=== PATIENT | female | born 1995 | race Caucasian/White ===

== ENCOUNTER 2022-12-02 08:36 | Outpatient (CLI) | payer BC, SELFPAY ==
[2022-12-02 09:23] LABS: Hemoglobin A1C 5.8 % (<5.7)
[2022-12-02 09:49] LABS: Free T4 Free Thyroxine 0.92 ng/dL (0.76-1.46); Thyroid Stimulating Hormone 0.76 uIU/mL (0.36-3.74)
[2022-12-02 09:57] LABS: Beta HCG Quantitative < 1.00 mIU/mL (0-6)
[2022-12-05 11:41] LABS: DHEA-Sulfate 276 mcg/dL (18-391)
[2022-12-05 15:47] LABS: Prolactin 7.4 ng/mL (***)
[2022-12-05 17:48] LABS: Testosterone Total 82 ng/dL (2-45)
[2022-12-08 05:51] LABS: Insulin Level Total 27.9 uIU/mL (<=18.4)
== END 2022-12-02 08:37 | disposition home or self-care (01) ==
LOC: CHSLAB 08:44
PROVIDERS: Visit Provider Nurse Practitioner
DX: N92.6 Irregular menstruation, unspecified (principal)
CPT/HCPCS: 36415; 82627; 83036; 83498; 83525; 84146; 84403; 84439; 84443; 84702

== ENCOUNTER 2023-02-07 09:40 | Outpatient (CLI) | payer BC, SELFPAY ==
[2023-02-12 06:21] LABS: Progesterone 0.4 ng/mL (***)
== END 2023-02-07 09:41 | disposition home or self-care (01) ==
LOC: CHSLAB 09:44
PROVIDERS: Visit Provider Advanced Practice Midwife
DX: N97.0 Female infertility associated with anovulation (principal)
CPT/HCPCS: 36415; 84144

== ENCOUNTER 2023-04-01 09:03 | Outpatient (CLI) | payer BC, SELFPAY ==
[2023-04-06 07:30] LABS: Progesterone 0.3 ng/mL (***)
== END 2023-04-01 09:04 | disposition home or self-care (01) ==
PROVIDERS: Visit Provider Obstetrics & Gynecology Gynecology
DX: Z31.49 Encounter for other procreative investigation and testing (principal); N97.9 Female infertility, unspecified
CPT/HCPCS: 36415; 84144

== ENCOUNTER 2023-06-05 09:28 | Outpatient (CLI) | payer BC, SELFPAY ==
[2023-06-06 06:18] LABS: Progesterone 15.5 ng/mL
== END 2023-06-05 09:29 | disposition home or self-care (01) ==
LOC: CHSLAB 09:32
PROVIDERS: Visit Provider Obstetrics & Gynecology Gynecology
DX: N97.9 Female infertility, unspecified (principal)
CPT/HCPCS: 36415; 84144

== ENCOUNTER 2023-06-14 09:47 | Outpatient (CLI) | payer BC, SELFPAY | END 2023-06-14 09:48 | disposition home or self-care (01) | LOC: CHSLAB 09:50 | PROVIDERS: Visit Provider Advanced Practice Midwife | DX: O09.01 Supervision of pregnancy with history of infertility, first trimester (principal) | CPT/HCPCS: 36415; 84702 ==

== ENCOUNTER 2023-06-16 09:17 | Outpatient (CLI) | payer BC, SELFPAY | END 2023-06-16 09:18 | disposition home or self-care (01) | LOC: CHSLAB 09:20 | PROVIDERS: PCP Advanced Practice Midwife; Visit Provider Obstetrics & Gynecology Gynecology | DX: O09.01 Supervision of pregnancy with history of infertility, first trimester (principal) | CPT/HCPCS: 36415; 84702 ==

== ENCOUNTER 2023-06-22 07:48 | Outpatient (CLI) | payer BC, SELFPAY ==
--- NOTE | ~2023-06-22 | US_ITS ---
EXAMINATION: US OB <=14 wk fetus w TV DATE: 06/22/2023 08:19 INDICATION: with history of infertility TECHNIQUE: Real-time transabdominal and transvaginal obstetric ultrasound. FINDINGS: No prior studies for comparison. The uterus measures 7.4 x 4.1 x 3.4Centimeters. There is an intrauterine gestational sac with measure ments corresponding to 5 week 5 day gestation. No pole or yolk sac are identified. Fluid is pre sent in the cervix. There is a right corpus luteal cyst measuring 2.8 cm. Left ovary is unremarkable. IMPRESSION: 1. Intrauterine gestational sac corresponding to 5 week 5 day gestation (KAILYN 02/17/2024). No evidence for pole or yolk sac, likely due to early gestational age. Recommend follow-up with serial drew ntitative beta-hCG levels and ultrasound as clinically warranted. Reviewed, dictated and finalized at location B. IMPRESSION: 1. Intrauterine gestational sac corresponding to 5 week 5 day gestation (KAILYN ). No evidence for pole or yolk sac, likely due to early gestatio nal age. Recommend follow-up with serial quantitative beta-hCG levels and ultra sound as clinically warranted.
== END 2023-06-22 07:49 ==
LOC: GOSHIMG 07:49
PROVIDERS: PCP Obstetrics & Gynecology Gynecology; Visit Provider Obstetrics & Gynecology Gynecology
DX: O09.01 Supervision of pregnancy with history of infertility, first trimester (principal); Z3A.01 Less than 8 weeks gestation of pregnancy
CPT/HCPCS: 76801; 76817

== ENCOUNTER 2023-06-29 08:02 | Outpatient (CLI) | payer BC, SELFPAY ==
--- NOTE | ~2023-06-29 | US_ITS ---
EXAMINATION: US OB <=14 wk fetus w TV DATE: 06/29/2023 08:26 INDICATION: Supervision of with history of infertility. TECHNIQUE: Real-time transabdominal and transvaginal pelvic ultrasound was performed. COMPARISON: Ultrasound 06/22/2023 FINDINGS: TRANSABDOMINAL ULTRASOUND: The uterus measures 7.8 x 4.9 x 4.2 cm. TRANSVAGINAL ULTRASOUND: There is an intrauterine gestational sac. A yolk sac is identified. The fet al crown rump length measures 5 mm, which correlates with an estimated gestational age of 6 weeks and 6 day(s) (+/-) 4 day(s). heart motion is identified measuring 140 beats per minute (bpm) by M- mode Doppler. The right ovary measures 4.6 x 3.3 x 3.1 cm. The left ovary measures 2.5 x 2.4 x 1.5 cm . There is no free fluid in the pelvis. IMPRESSION: 1. Single living intrauterine gestation with estimated date of delivery of 02/20/2024. Reviewed, dictated and finalized at location A. IMPRESSION: 1. Single living intrauterine gestation with estimated date of delivery of .
== END 2023-06-29 08:03 ==
LOC: GOSHIMG 08:03
PROVIDERS: PCP Obstetrics & Gynecology Gynecology; Visit Provider Obstetrics & Gynecology Gynecology
DX: O09.01 Supervision of pregnancy with history of infertility, first trimester (principal); Z3A.00 Weeks of gestation of pregnancy not specified
CPT/HCPCS: 76801; 76817

== ENCOUNTER 2023-08-02 12:12 | Outpatient (CLI) | payer BC, SELFPAY ==
[2023-08-02 12:55] LABS: Basophils Absolute Auto 0.03 K/mm3 (0.00-0.10); Basophils Percent Auto 0.3 % (0.0-1.0); Eosinophils Percent Auto 1.1 % (1.0-6.0); Hematocrit 39.2 % (35.0-49.0); Immature Granulocyte Absolute 0.04 K/mm3 (0.00-0.00); Immature Granulocyte Percent A 0.4 % (0.0-0.0); Lymphocytes Absolute Auto 2.74 K/mm3 (1.10-4.50); Lymphocytes Percent Auto 29.4 % (18.0-42.0); Mean Corpuscular HGB Conc 33.2 g/dL (32-36); Mean Corpuscular Hemoglobin 27.5 pg (27.0-31.0); Mean Corpuscular Volume 83.1 fL (78.0-102.0); Monocytes Absolute Auto 0.37 K/mm3 (0.10-0.90); Neutrophils Absolute Auto 6.03 K/mm3 (1.70-7.20); Neutrophils Percent Auto 64.8 % (50.0-70.0); Platelet Count Result 274 K/mm3 (150-420); Red Blood Count 4.72 M/mm3 (4.20-5.40); Red Cell Distribution Width 12.4 % (11.6-14.4); White Blood Count 9.3 K/mm3 (4.8-10.8)
[2023-08-02 13:07] LABS: Hemoglobin A1C 5.4 % (<5.7)
[2023-08-02 13:24] LABS: Ferritin 207 ng/mL (8-252)
[2023-08-02 13:29] LABS: Thyroid Stimulating Hormone Reflex 0.51 u/IU/mL (0.36-3.74)
[2023-08-02 13:42] LABS: HIV 1 P24 AG Negative (Negative); HIV 1/2 AB Negative (Negative)
[2023-08-03 11:12] LABS: Free T4 Free Thyroxine 0.88 ng/dL (0.76-1.46)
[2023-08-03 17:43] LABS: Vitamin D 25 Hydroxy 28 ng/mL (30-100)
[2023-08-04 10:28] LABS: RPR Screen NON-REACTIVE (NON-REACTIVE)
[2023-08-04 12:49] LABS: Rubella IgG Antibody <0.90 Index
[2023-08-04 16:03] LABS: Hepatitis B Surface Antigen NON-REACTIVE (NON-REACTIVE); Hepatitis C Virus Antibody NON-REACTIVE (NON-REACTIVE)
== END 2023-08-02 12:13 | disposition home or self-care (01) ==
LOC: CHSLAB 12:15
PROVIDERS: PCP Obstetrics & Gynecology Gynecology; Visit Provider Advanced Practice Midwife
DX: Z36.9 Encounter for antenatal screening, unspecified (principal); Z13.29 Encounter for screening for other suspected endocrine disorder
CPT/HCPCS: 36415; 82306; 82728; 83036; 84439; 84443; 85025; 86592; 86762; 86803; 86850; 86900; 86901; 87340; 87806

== ENCOUNTER 2023-09-20 08:03 | Outpatient (CLI) | payer BC, SELFPAY ==
--- NOTE | ~2023-09-20 | US_ITS ---
EXAMINATION: US OB /maternal detail DATE: 09/20/2023 09:08 INDICATION: anatomic survey. TECHNIQUE: Real-time ultrasound of the pelvis was performed. COMPARISON: Ultrasound 06/29/2023, 06/22/2023 FINDINGS: There is a single living fetus in breech presentation. The placenta is anterior, 7.0 cm from the cer vix. The cervical length is 2.7 cm on transabdominal images, which is normal. heart rate is 143 beats per minute (bpm). The amniotic fluid volume is subjectively normal. The following biometric data were obtained: Biparietal diameter (BPD): 4.1 cm; head circumference (HC): 15.6 cm; abdominal circumference (AC): 12 .5 cm; femur length (FL): 2.7 cm. These measurements are concordant. Estimated weight is 230 g +/- 34 g, which correlates with the 50th percentile when 02/20/24 is used as estimated date of delivery. As single measurements, these parameters are each equal to the following estimated gestational ages: BPD: 18 weeks 2 days. HC: 18 weeks 4 days. AC: 18 weeks 1 days. FL: 18 weeks 2 days. estimated gestational age based solely on measurements from this exam is 18 weeks 2 days +/- 1 weeks 2 days. The cerebral ventricles and visualized portions of the spine are normal. The heart is normal. The jesi phragm, stomach, kidneys, and bladder are normal. There are two umbilical arteries to yield a 3-vesse l cord. The cord insertion is normal. The cisterna magna, cerebellum, nuchal fold, lip, and hea rt are not well visualized. IMPRESSION: 1. Single living fetus in breech presentation. 2. Estimated weight is 230 g +/- 34 g, which correlates with the 50th percentile when 02/20/24 is used as estimated date of delivery. This date was set by ultrasound on 06/29/2023. 3. Cisterna magna, cerebellum, nuchal fold, lip, and heart not well visualized. Otherwise autumn l anatomic survey. Reviewed, dictated and finalized at location A. IMPRESSION: 1. Single living fetus in breech presentation. 2. Estimated weight is 230 g +/- 34 g, which correlates with the 50th pe rcentile when 02/20/24 is used as estimated date of delivery. This date was set by ultrasound on 06/29/2023. 3. Cisterna magna, cerebellum, nuchal fold, lip, and heart not well visua lized. Otherwise normal anatomic survey.
== END 2023-09-20 08:04 ==
PROVIDERS: PCP Obstetrics & Gynecology Gynecology; Visit Provider Obstetrics & Gynecology Gynecology
DX: Z36.9 Encounter for antenatal screening, unspecified (principal)
CPT/HCPCS: 76805

== ENCOUNTER 2023-10-17 08:13 | Outpatient (CLI) | payer BC, SELFPAY ==
--- NOTE | ~2023-10-17 | US_ITS ---
EXAMINATION: US OB follow up DATE: 10/17/2023 08:44 INDICATION: Incomplete anatomic survey. TECHNIQUE: Real-time ultrasound of the pelvis was performed. COMPARISON: Ultrasound 09/20/2023 FINDINGS: There is a single living fetus in vertex presentation. The placenta is anterior. heart rate is 146 beats per minute (bpm). The cerebral ventricles, cerebellum, cisterna magna, nuchal fold, and he art views are normal. The amniotic fluid volume is subjectively normal. The following biometric data were obtained: Biparietal diameter (BPD): 5.6 cm; head circumference (HC): 20.9 cm; abdominal circumference (AC): 17 .9 cm; femur length (FL): 3.9 cm. These measurements are concordant. Estimated weight is 526 g +/- 79 g, which correlates with the 79th percentile when 02/20/24 is used as estimated date of delivery. As single measurements, these parameters are each equal to the following estimated gestational ages: BPD: 23 weeks 0 days. HC: 23 weeks 0 days. AC: 22 weeks 6 days. FL: 22 weeks 3 days. estimated gestational age based solely on measurements from this exam is 22 weeks 6 days +/- 1 weeks 4 days. IMPRESSION: 1. Single living fetus in vertex presentation. 2. Estimated weight is 526 g +/- 79 g, which correlates with the 79th percentile when 02/20/24 is used as estimated date of delivery. 3. Normal head and heart. Reviewed, dictated and finalized at location A. IMPRESSION: 1. Single living fetus in vertex presentation. 2. Estimated weight is 526 g +/- 79 g, which correlates with the 79th pe rcentile when 02/20/24 is used as estimated date of delivery. 3. Normal head and heart.
== END 2023-10-17 08:14 ==
LOC: GOSHIMG 08:14
PROVIDERS: PCP Obstetrics & Gynecology Gynecology; Visit Provider Obstetrics & Gynecology Gynecology
DX: Z36.2 Encounter for other antenatal screening follow-up (principal)
CPT/HCPCS: 76816

== ENCOUNTER 2023-12-01 10:40 | Outpatient (CLI) | payer BC, SELFPAY ==
[2023-12-01 12:18] LABS: Hematocrit 34.6 % (35.0-49.0); Hemoglobin 11.4 g/dL (12.0-15.0)
[2023-12-01 12:43] LABS: Glucose 1 Hour PP 50gm Dose 183 mg/dL (70-130)
[2023-12-01 12:51] LABS: HIV 1 P24 AG Negative (Negative); HIV 1/2 AB Negative (Negative)
[2023-12-02 10:58] LABS: Vitamin D 25 Hydroxy 53 ng/mL (30-100)
[2023-12-04 12:33] LABS: RPR Screen NON-REACTIVE (NON-REACTIVE)
== END 2023-12-01 10:41 | disposition home or self-care (01) ==
LOC: CHSLAB 10:41
PROVIDERS: Visit Provider Advanced Practice Midwife
DX: E55.9 Vitamin D deficiency, unspecified (principal); Z36.9 Encounter for antenatal screening, unspecified
CPT/HCPCS: 36415; 82306; 82947; 85014; 85018; 86592; 87806

== ENCOUNTER 2023-12-08 09:24 | Outpatient (CLI) | payer BC, SELFPAY ==
[2023-12-08 09:52] LABS: Glucose Fasting 93 mg/dL (70-99)
[2023-12-08 10:54] LABS: Glucose 1 Hour 237 mg/dL (<180)
[2023-12-08 12:13] LABS: Glucose 2 Hour 204 mg/dL (<155)
[2023-12-08 12:53] LABS: Glucose 3 Hour 142 mg/dL (<140)
== END 2023-12-08 09:25 | disposition home or self-care (01) ==
LOC: CHSLAB 09:28
PROVIDERS: PCP Obstetrics & Gynecology Gynecology; Visit Provider Obstetrics & Gynecology Gynecology
DX: O99.810 Abnormal glucose complicating pregnancy (principal)
CPT/HCPCS: 36415; 82951; 82952

== ENCOUNTER 2023-12-29 07:54 | Outpatient (CLI) | payer BC, SELFPAY ==
--- NOTE | ~2023-12-29 | US_ITS ---
EXAMINATION: US OB follow up DATE: 12/29/2023 08:16 INDICATION: Size greater than dates. . TECHNIQUE: Real-time ultrasound of the pelvis was performed. COMPARISON: Ultrasound 10/17/2023, 06/22/2023 FINDINGS: There is a single living fetus in vertex presentation. The placenta is anterior. heart rate is 147 beats per minute (bpm). The amniotic fluid index is 11.9 cm, which is normal. The following biometric data were obtained: Biparietal diameter (BPD): 8.7 cm; head circumference (HC): 29.7 cm; abdominal circumference (AC): 28 .6 cm; femur length (FL): 6.4 cm. These measurements are discordant with high cephalic index. Estimated weight is 2102 g +/- 315 g, which correlates with the 59th percentile when 02/20/24 i s used as estimated date of delivery. As single measurements, these parameters are each equal to the following estimated gestational ages: BPD: 34 weeks 6 days. HC: 32 weeks 6 days. AC: 32 weeks 5 days. FL: 33 weeks 1 days. estimated gestational age based solely on measurements from this exam is 33 weeks 3 days +/- 2 weeks 2 days. IMPRESSION: 1. Single living fetus in vertex presentation. 2. Estimated weight is 2102 g +/- 315 g, which correlates with the 59th percentile when is used as estimated date of delivery. This date was set by ultrasound on 06/29/2023. 3. High cephalic index. Reviewed, dictated and finalized at location A. AR MIXER OPERATOR IMPRESSION: 1. Single living fetus in vertex presentation. 2. Estimated weight is 2102 g +/- 315 g, which correlates with the 59th percentile when 02/20/24 is used as estimated date of delivery. This date was s et by ultrasound on 06/29/2023. 3. High cephalic index.
== END 2023-12-29 07:55 | disposition home or self-care (01) ==
LOC: CHSIMG 07:55
PROVIDERS: Visit Provider Advanced Practice Midwife
DX: O36.63X0 Maternal care for excessive fetal growth, third trimester, not applicable or unspecified (principal); O24.410 Gestational diabetes mellitus in pregnancy, diet controlled
CPT/HCPCS: 76816

== ENCOUNTER 2024-01-23 15:28 | Outpatient (CLI) | payer BC, SELFPAY ==
--- NOTE | ~2024-01-23 | US_ITS ---
EXAMINATION: US OB follow up DATE: 01/23/2024 15:46 INDICATION: Assess growth during third trimester TECHNIQUE: Real-time ultrasound of the pelvis was performed. The interpreting radiologist was not pre sent for the study. COMPARISON: None. FINDINGS: There is a single living fetus in vertex presentation. The placenta is anterior. heart rate is 159 beats per minute (bpm). The amniotic fluid index is 11.9 cm, which is normal. (5th%-95%: 7.7-24 .9 cm at 36 weeks estimated gestational age). The following biometric data were obtained: BPD: 8.9 cm -> 36 weeks 0 days Head circumference: 31.5 cm -> 35 weeks 2 days Abdominal circumference: 32.1 cm -> 36 weeks 0 days Femur length: 7.0 cm -> 35 weeks 5 days These measurements are concordant. Head circumference to abdominal circumference ratio: 0.98 (normal range 0.93-1.09). Estimated weight: 2783 g (+/-) 417 g or 6 lbs. 2 oz. (+/-) 15 oz. IMPRESSION: 1. Single living fetus in vertex presentation with heart rate of 159 bpm. 2. Normal amniotic fluid index of 11.9 cm. 3. Estimated weight is 47th percentile by Hadlock criteria when 02/20/2024 is used as the estim ated date of delivery (KAILYN). Please correlate with clinical information or earlier ultrasounds for mo st accurate KAILYN. Reviewed, dictated and finalized at location A. T TEAM CLERK IMPRESSION: 1. Single living fetus in vertex presentation with heart rate of 159 bpm. 2. Normal amniotic fluid index of 11.9 cm. 3. Estimated weight is 47th percentile by Hadlock criteria when 4 is used as the estimated date of delivery (KAILYN). Please correlate with clinic al information or earlier ultrasounds for most accurate KAILYN.
== END 2024-01-23 15:29 | disposition home or self-care (01) ==
LOC: GOSHIMG 15:29
PROVIDERS: PCP Advanced Practice Midwife; Visit Provider Advanced Practice Midwife
DX: O24.410 Gestational diabetes mellitus in pregnancy, diet controlled (principal); Z3A.00 Weeks of gestation of pregnancy not specified
CPT/HCPCS: 76816

== ENCOUNTER 2024-02-06 11:56 | Outpatient (RCR) | payer BC, SELFPAY ==
[2024-02-06 13:08] VITALS: BP 112/70; PULSE 91
== END 2024-05-06 23:59 | disposition home or self-care (01) ==
LOC: ANHOBOP 11:56
PROVIDERS: PCP Advanced Practice Midwife; Visit Provider Obstetrics & Gynecology Gynecology
DX: O99.891 Other specified diseases and conditions complicating pregnancy (principal); V89.2XXA Person injured in unspecified motor-vehicle accident, traffic, initial encounter; Z3A.38 38 weeks gestation of pregnancy
CPT/HCPCS: 59025

== ENCOUNTER 2024-02-12 | Inpatient (IN) | payer BC, SELFPAY ==
[2024-02-12] VITALS (239 sets, daily range): BP systolic 81–158; BP diastolic 39–123; PULSE 64–231; RESP 16; TEMP 36.2–37.2; O2SAT 88–100; BMI 41.1
--- NOTE | 2024-02-12 00:31 | LDADM ---
This patient, Yuliet Wood, was admitted to Labor/Delivery/Recovery 105 on 02/12/24 at 00:00. Plans for labor, pain management and were discussed with patient. Patient/family oriented to hospital policies and general routines including ID bracelet, bed and alarms, visiting hours, pain management, procedures, bathroom and other care routines, personal items, smoking policy, room service/diet and guest tray routines, security routines, and visiting hours. Patient/Family are encouraged to report perceived risks to care and to ask questions if they do not understand what they are told or what they should do. See OBIX for further documentation.
[2024-02-12 01:06] LABS: Basophils Percent Auto 0.3 % (0.2-1.2); Eosinophils Absolute Auto 0.1 K/mm3 (0-0.3); Eosinophils Percent Auto 0.9 % (0-4.4); Immature Granulocyte Absolute 0.07 K/mm3 (0.00-0.031); Immature Granulocyte Percent A 0.7 % (0-0.5); Lymphocytes Absolute Auto 2.69 K/mm3 (0.9-3.2); Mean Corpuscular HGB Conc 33.3 g/dl (32-36); Mean Corpuscular Volume 81.1 fl (80-100); Mean Platelet Volume 11.3 fl (7.4-10.4); Monocytes Absolute Auto 0.6 K/mm3 (0.1-0.6); Monocytes Percent Auto 5.8 % (2.6-8.5); Neutrophils Absolute Auto 6.5 K/mm3 (1.3-6.7); Neutrophils Percent Auto 65.3 % (45.5-73.1); Platelet Count Result 227 k/mm3 (150-375); Red Blood Count 4.44 M/mm3 (4.2-5.4); Red Cell Distribution Width 13.6 % (11.5-14.5)
[2024-02-12 01:11] LABS: Glucose 92 mg/dL (65-110)
[2024-02-12 01:52] LABS: HIV 1/2 Ab P24 Ag Result Negative (Negative)
[2024-02-12 02:18] LABS: Rapid Plasma Reagin Non-Reactive (NonReactive)
[2024-02-12] MEDS: LACTATED RINGERS 1,000 ML 125 ML IV CONT ×4 (03:01→20:27)
[2024-02-12] MEDS: AMPICILLIN 2 GM/NS 100 ML 2 GM/100 ML BAG IVPB (03:03)
[2024-02-12] MEDS: OXYTOCIN 30 UNITS/NS 500 ML 30 UNITS/500 ML BAG IV CONT (03:04)
[2024-02-12] MEDS: diphenhydrAMINE HCl INJ 50 MG/ML VIAL 12.5 MG IV PUSH ×2 (03:45→18:11)
[2024-02-12 04:35] LABS: Glucose Point of Care 85 mg/dl (65-105)
[2024-02-12] MEDS: VANCOMYCIN 1,000 MG/NS 250 ML 1,000 MG/250 ML BAG 250 MG IVPB ×2 (07:29→19:18)
--- NOTE | 2024-02-12 07:52 | P.PNOB_ITS ---
Pain Control Date/time seen: 02/12/24 07:45 Pain control: tolerating well Comments: Feeling occasional tightening. Pelvic Exam Dilation (cm): 4 (4.5) Effacement (%): 80 station: -2 Amniotic membrane status: Intact Comments: head well applied to cervix. Contractions Monitor mode: External Contraction pattern: Irregular Contraction intensity: Mild Status Comments: FHTs 145 ,moderate variability, + acceleration. Assessment and Plan Pitocin rate (mU/min): 12 Assessment: induction ongoing Comments: CNM to bedside. Discussed plan of care and option for amniotomy. Discussed ris ks, benefits, and expectations of breaking water. Patient is agreeable. Amniotomy performed and there was a moderate return of clear amniotic fluid. Patient tolerated procedure well. Anticipate vaginal . Dr. Castle updated.
--- NOTE | 2024-02-12 07:52 | WPDOBADMIT ---
Obstetrics - Admit Note Admission Note: record reviewed. No pertinent additions to the history and/or any subsequent changes in the physical findings that are not consistent with the expected course of the were found. Additions to the history and/or subsequent changes in the physical findings follow. None.
[2024-02-12 09:04] LABS: Glucose Point of Care 98 mg/dl (65-105)
--- NOTE | 2024-02-12 09:43 | P.PNAN_ITS ---
Anes - Eval Pre Procedure Procedure: labor epidural Date/Time: 02/12/24 09:43 Surgeon: gretta Preop Diagnosis: pain during labor Pre Op Diagnosis: Induction of labor Patient Data Age: 28 Gender: F Height: 1.57 m Weight: 102 kg Last Vital Signs Temp 36.2 C L 02/12/24 09:32 Pulse 90 02/12/24 09:30 BP 121/68 02/12/24 09:30 O2 Del Method Room Air 02/12/24 00:29 Allergies Allergy/AdvReac Type Severity Reaction Status Date / Time ampicillin Allergy Mild Itching Verified 02/12/24 05:10 amoxicillin Allergy Rash Verified 02/12/24 05:10 Home Medications ?Medication ?Instructions ?Recorded ?Confirmed ?Type aspirin 81 mg tablet 81 mg PO DAILY 01/26/24 01/26/24 History ergocalciferol (vitamin D2) 25,000 See Rx Instructions .Route .COMPLEX 01/26/24 01/26/24 History unit capsule famotidine 20 mg tablet (Pepcid) 20 mg PO DAILY 01/26/24 01/26/24 History vits no.126-ferrous fum 1 tablet PO DAILY 01/26/24 01/26/24 History 28 mg iron-folic acid 800 mcg tablet (Classic ) Laboratory Tests 02/12/24 02/12/24 02/12/24 00:52 04:32 09:00 WBC 10.0 K/mm3 (4.5-10.0) RBC 4.44 M/mm3 (4.2-5.4) Hgb 12.0 g/dL (12.0-15.0) Hct 36.0 L % (37.0-47.0) MCV 81.1 fl (80-100) MCH 27.0 pg (26-34) MCHC 33.3 g/dl (32-36) RDW 13.6 % (11.5-14.5) Plt Count 227 k/mm3 (150-375) MPV 11.3 H fl (7.4-10.4) Immature Gran % (Auto) 0.7 H % (0-0.5) Neut % (Auto) 65.3 % (45.5-73.1) Lymph % (Auto) 27.0 % (18.3-44.2) Glascock % (Auto) 5.8 % (2.6-8.5) Eos % (Auto) 0.9 % (0-4.4) Baso % (Auto) 0.3 % (0.2-1.2) Lymph # (Auto) 2.69 K/mm3 (0.9-3.2) Glascock # (Auto) 0.6 K/mm3 (0.1-0.6) Eos # (Auto) 0.1 K/mm3 (0-0.3) Baso # (Auto) 0.0 K/mm3 (0.0-0.1) Abs Immat Gran (auto) 0.07 H K/mm3 (0.00-0.031) Absolute Neuts (auto) 6.5 K/mm3 (1.3-6.7) Absolute Nucleated RBC 0.000 K/mm3 (0.0-0.012) Nucleated RBC % 0.0 % (0.0-0.2) Glucose 92 mg/dL (65-110) POC Capillary Glucose 85 mg/dl 98 mg/dl (65-105) (65-105) RPR Non-reactive (NonReactive) HIV 1&2 Ab/P24 Ag 4thGn Negative (Negative) Blood Type A Positive Antibody Screen Negative Patient hx anesthesia problems: none Family hx anesthesia problems: none Results Review: All pre-operative results and documents have been reviewed as part of the pre- operative evaluation. [facility] Past Medical History Medical History (Updated 02/12/24 @ 09:44 by Kia Anaya CRNA) Obesity Family History Family History (Updated 01/26/24 @ 12:17 by Darline Salgado RN) Other No pertinent family history Social History Social History Smoking status: Never smoker Second hand tobacco smoke exposure: No Substance use: never Do You Feel Safe in your Home?: Yes Lack of Transportation: No Lack of Food: Never True Current Housing: I Have Housing Concerned About Future Housing: No Difficulty Paying Gas/Electric Bills: No Difficulty Paying for Meds: No Currently Unemployed: No Education: Bachelor's Degree Difficulty w/ Childcare or Family Care: No Spiritual care concerns: No Exam Day of Procedure 02/12/24 09:43
[2024-02-12 11:59] LABS: Glucose Point of Care 83 mg/dl (65-105)
[2024-02-12 14:06] LABS: Glucose Point of Care 87 mg/dl (65-105)
[2024-02-12 16:01] LABS: Glucose Point of Care 72 mg/dl (65-105)
--- NOTE | 2024-02-12 17:29 | PM.OBPNLAB ---
Pain Control Date/time seen: 02/12/24 17:25 Pain control: tolerating well and epidural Comments: Feeling occasional pressure. Pelvic Exam Dilation (cm): 8 (4.5) Effacement (%): 90 station: 0 Amniotic membrane status: Ruptured Contractions Monitor mode: Internal Contraction frequency: 2 (2-4) Contraction duration: 60 (60-80) Contraction pattern: Regular Status Comments: FHTs 145 baseline, moderate variability, +scalp stim, recent late decels which resolved with position change. Assessment and Plan Pitocin rate (mU/min): 18 Assessment: active labor Plan: continuous present management Comments: Recommend frequent maternal position changes to facilitate descent into the pelvis. Reviewed tracing. No evidence of infection. Antibiotics continued for GBS+ status. Blood sugars stable. Dr. Castle updated.
--- NOTE | 2024-02-12 17:34 | P.HP_ITS ---
H&P: HPI History of Present Illness Date/Time: 02/12/24 17:34 Chief Complaint: Induction of labor Narrative: 28 y.o at 39 weeks 3 days. GDMA1 with stable blood sugars. Received pitocin for IOL and amniotomy was performed. Epidural placed for analgesia. Review of Systems Review of Systems: All systems reviewed & are unremarkable except as noted in HPI and below PMFSH Past Medical History Medical History (Updated 02/12/24 @ 17:39 by Twila Mccarty CNM) Obesity Family History Family History (Updated 01/26/24 @ 12:17 by Darline Salgado RN) Other No pertinent family history Social History Social History Smoking status: Never smoker Second hand tobacco smoke exposure: No Substance use: never Do You Feel Safe in your Home?: Yes Lack of Transportation: No Lack of Food: Never True Current Housing: I Have Housing Concerned About Future Housing: No Difficulty Paying Gas/Electric Bills: No Difficulty Paying for Meds: No Currently Unemployed: No Education: Bachelor's Degree Difficulty w/ Childcare or Family Care: No Spiritual care concerns: No Meds Home Medications and Allergies Home Medications ?Medication ?Instructions ?Recorded ?Confirmed ?Type aspirin 81 mg tablet 81 mg PO DAILY 01/26/24 01/26/24 History ergocalciferol (vitamin D2) 25,000 See Rx Instructions .Route .COMPLEX 01/26/24 01/26/24 History unit capsule famotidine 20 mg tablet (Pepcid) 20 mg PO DAILY 01/26/24 01/26/24 History vits no.126-ferrous fum 1 tablet PO DAILY 01/26/24 01/26/24 History 28 mg iron-folic acid 800 mcg tablet (Classic ) Allergies Allergy/AdvReac Type Severity Reaction Status Date / Time ampicillin Allergy Mild Itching Verified 02/12/24 05:10 amoxicillin Allergy Rash Verified 02/12/24 05:10 Vital Signs Vital Signs - 24 hr 02/12/24 00:18 02/12/24 00:29 02/12/24 00:30 Temperature 98 F Pulse Rate 88 89 Blood Pressure 138/72 125/72 Pulse Oximetry Oxygen Delivery Room Air 02/12/24 00:45 02/12/24 01:00 02/12/24 01:15 Temperature Pulse Rate 86 92 90 Blood Pressure 111/87 122/70 120/68 Pulse Oximetry Oxygen Delivery 02/12/24 03:15 02/12/24 04:00 02/12/24 04:15 Temperature Pulse Rate 86 79 79 Blood Pressure 133/66 146/82 H 131/73 Pulse Oximetry Oxygen Delivery 02/12/24 04:30 02/12/24 04:45 02/12/24 05:00 Temperature Pulse Rate 86 83 78 Blood Pressure 132/73 129/75 140/74 Pulse Oximetry Oxygen Delivery 02/12/24 05:15 02/12/24 05:30 02/12/24 06:00 Temperature Pulse Rate 78 86 83 Blood Pressure 138/76 147/80 H 107/61 Pulse Oximetry Oxygen Delivery 02/12/24 06:14 02/12/24 06:30 02/12/24 06:45 Temperature Pulse Rate 91 87 81 Blood Pressure 123/81 135/74 128/70 Pulse Oximetry Oxygen Delivery 02/12/24 07:00 02/12/24 07:15 02/12/24 07:25 Temperature 97.2 F L Pulse Rate 79 85 Blood Pressure 116/69 122/70 Pulse Oximetry Oxygen Delivery 02/12/24 07:30 02/12/24 08:00 02/12/24 08:30 Temperature Pulse Rate 90 85 79 Blood Pressure 120/82 119/75 120/66 Pulse Oximetry Oxygen Delivery 02/12/24 09:30 02/12/24 09:32 02/12/24 10:05 Temperature 97.2 F L 98.4 F Pulse Rate 90 Blood Pressure 121/68 Pulse Oximetry Oxygen Delivery 02/12/24 10:26 02/12/24 10:28 02/12/24 10:31 Temperature Pulse Rate 92 Blood Pressure 141/73 H Pulse Oximetry 99 99 Oxygen Delivery 02/12/24 10:33 02/12/24 10:34 02/12/24 10:36 Temperature Pulse Rate 80 90 89 Blood Pressure 142/76 H 142/62 H 128/60 Pulse Oximetry 99 Oxygen Delivery 02/12/24 10:39 02/12/24 10:41 02/12/24 10:42 Temperature Pulse Rate 88 89 Blood Pressure 127/64 121/60 Pulse Oximetry 98 Oxygen Delivery 02/12/24 10:45 02/12/24 10:46 02/12/24 10:48 Temperature Pulse Rate 87 75 Blood Pressure 121/54 L 117/54 L Pulse Oximetry 98 Oxygen Delivery 02/12/24 10:51 02/12/24 10:54 02/12/24 10:56 Temperature Pulse Rate 85 80 Blood Pressure 118/51 L 120/49 L Pulse Oximetry 98 99 Oxygen Delivery 02/12/24 10:57 02/12/24 11:00 02/12/24 11:01 Temperature Pulse Rate 78 75 Blood Pressure 121/53 L 118/50 L Pulse Oximetry 98 Oxygen Delivery 02/12/24 11:03 02/12/24 11:06 02/12/24 11:09 Temperature Pulse Rate 77 88 174 H Blood Pressure 110/43 L 111/59 L 81/50 L Pulse Oximetry 100 Oxygen Delivery 02/12/24 11:11 02/12/24 11:15 02/12/24 11:16 Temperature Pulse Rate 100 85 Blood Pressure 98/82 L 107/78 Pulse Oximetry 99 100 Oxygen Delivery 02/12/24 11:21 02/12/24 11:26 02/12/24 11:30 Temperature Pulse Rate 84 Blood Pressure 119/62 Pulse Oximetry 99 99 Oxygen Delivery 02/12/24 11:31 02/12/24 11:36 02/12/24 11:41 Temperature Pulse Rate Blood Pressure Pulse Oximetry 99 98 99 Oxygen Delivery 02/12/24 11:45 02/12/24 11:46 02/12/24 11:49 Temperature Pulse Rate 86 Blood Pressure 105/47 L Pulse Oximetry 99 97 Oxygen Delivery 02/12/24 11:52 02/12/24 11:54 02/12/24 11:59 Temperature 98.8 F Pulse Rate Blood Pressure Pulse Oximetry 100 99 Oxygen Delivery 02/12/24 12:01 02/12/24 12:04 02/12/24 12:09 Temperature Pulse Rate 79 Blood Pressure 144/63 H Pulse Oximetry 99 98 Oxygen Delivery 02/12/24 12:14 02/12/24 12:15 02/12/24 12:19 Temperature Pulse Rate 71 Blood Pressure 132/77 Pulse Oximetry 98 97 Oxygen Delivery 02/12/24 12:24 02/12/24 12:29 02/12/24 12:30 Temperature Pulse Rate 68 Blood Pressure 129/68 Pulse Oximetry 97 96 Oxygen Delivery 02/12/24 12:34 02/12/24 12:39 02/12/24 12:44 Temperature Pulse Rate Blood Pressure Pulse Oximetry 98 97 97 Oxygen Delivery 02/12/24 12:45 02/12/24 12:49 02/12/24 12:54 Temperature Pulse Rate 72 Blood Pressure 138/73 Pulse Oximetry 99 100 Oxygen Delivery 02/12/24 12:59 02/12/24 13:00 02/12/24 13:04 Temperature Pulse Rate 72 Blood Pressure 103/43 L Pulse Oximetry 99 100 Oxygen Delivery 02/12/24 13:09 02/12/24 13:14 02/12/24 13:15 Temperature Pulse Rate 67 Blood Pressure 98/42 L Pulse Oximetry 99 99 Oxygen Delivery 02/12/24 13:19 02/12/24 13:24 02/12/24 13:29 Temperature Pulse Rate Blood Pressure Pulse Oximetry 100 100 97 Oxygen Delivery 02/12/24 13:30 02/12/24 13:34 02/12/24 13:39 Temperature 98.9 F Pulse Rate 70 Blood Pressure 98/44 L Pulse Oximetry 100 100 Oxygen Delivery 02/12/24 13:44 02/12/24 13:45 02/12/24 13:49 Temperature Pulse Rate 74 Blood Pressure 123/64 Pulse Oximetry 100 98 Oxygen Delivery 02/12/24 13:52 02/12/24 13:57 02/12/24 14:00 Temperature Pulse Rate 74 Blood Pressure 127/68 Pulse Oximetry 100 99 Oxygen Delivery 02/12/24 14:02 02/12/24 14:07 02/12/24 14:12 Temperature Pulse Rate Blood Pressure Pulse Oximetry 100 100 99 Oxygen Delivery 02/12/24 14:15 02/12/24 14:17 02/12/24 14:22 Temperature Pulse Rate 79 Blood Pressure 106/39 L Pulse Oximetry 100 100 Oxygen Delivery 02/12/24 14:27 02/12/24 14:30 02/12/24 14:32 Temperature Pulse Rate 73 Blood Pressure 125/66 Pulse Oximetry 100 99 Oxygen Delivery 02/12/24 14:37 02/12/24 14:42 02/12/24 14:45 Temperature Pulse Rate 75 Blood Pressure 129/65 Pulse Oximetry 99 99 Oxygen Delivery 02/12/24 14:47 02/12/24 14:52 02/12/24 14:57 Temperature 97.4 F L Pulse Rate Blood Pressure Pulse Oximetry 100 100 100 Oxygen Delivery 02/12/24 15:01 02/12/24 15:02 02/12/24 15:07 Temperature Pulse Rate 231 H Blood Pressure 142/60 H Pulse Oximetry 99 99 Oxygen Delivery 02/12/24 15:12 02/12/24 15:15 02/12/24 15:17 Temperature Pulse Rate 75 Blood Pressure 135/79 Pulse Oximetry 99 99 Oxygen Delivery 02/12/24 15:22 02/12/24 15:27 02/12/24 15:30 Temperature Pulse Rate 72 Blood Pressure 136/74 Pulse Oximetry 98 97 Oxygen Delivery 02/12/24 15:32 02/12/24 15:37 02/12/24 15:42 Temperature Pulse Rate Blood Pressure Pulse Oximetry 99 99 98 Oxygen Delivery 02/12/24 15:45 02/12/24 15:47 02/12/24 15:52 Temperature Pulse Rate 67 Blood Pressure 105/47 L Pulse Oximetry 99 99 Oxygen Delivery 02/12/24 15:57 02/12/24 16:02 02/12/24 16:06 Temperature 98.3 F Pulse Rate Blood Pressure Pulse Oximetry 99 100 Oxygen Delivery 02/12/24 16:07 02/12/24 16:12 02/12/24 16:15 Temperature Pulse Rate 74 Blood Pressure 141/76 H Pulse Oximetry 100 99 Oxygen Delivery 02/12/24 16:17 02/12/24 16:22 02/12/24 16:27 Temperature Pulse Rate Blood Pressure Pulse Oximetry 100 99 98 Oxygen Delivery 02/12/24 16:30 02/12/24 16:32 02/12/24 16:37 Temperature Pulse Rate 75 Blood Pressure 148/80 H Pulse Oximetry 99 100 Oxygen Delivery 02/12/24 16:42 02/12/24 16:45 02/12/24 16:47 Temperature Pulse Rate 76 Blood Pressure 158/123 H Pulse Oximetry 100 100 Oxygen Delivery 02/12/24 16:52 02/12/24 16:57 02/12/24 17:00 Temperature Pulse Rate 88 Blood Pressure 122/48 L Pulse Oximetry 99 100 Oxygen Delivery 02/12/24 17:02 02/12/24 17:07 02/12/24 17:12 Temperature Pulse Rate Blood Pressure Pulse Oximetry 100 100 100 Oxygen Delivery 02/12/24 17:15 02/12/24 17:17 02/12/24 17:22 Temperature Pulse Rate 87 Blood Pressure 130/64 Pulse Oximetry 100 100 Oxygen Delivery 02/12/24 17:27 02/12/24 17:30 02/12/24 17:32 Temperature Pulse Rate 73 Blood Pressure 119/61 Pulse Oximetry 100 100 Oxygen Delivery Exam Const: General: comfortable Other: Epidural infusing. HENMT: Mouth: Yes moist mucous membranes Eyes: General: appearance normal, both eyes and all related structures Neck: Neck: supple Resp: Effort & Inspection: normal respiratory effort Auscultation: clear to auscultation bilaterally Cardio: Rate: regular rate GI: GI Palp: Yes Soft to palpation Other: gravid : General: Yes bladder normal to palpation Urinary Catheter: Urinary Catheter: patent and draining and urine clear Skin: General skin exam: normal color and no rashes or lesions noted Wounds: no wounds Neuro: Speech: normal speech Extrem: General: normal to inspection Psych: Mental Status: mental status grossly normal Affect: normal affect H&P: Results Labs Labs: Short CBC 02/12/24 Range/Units 00:52 WBC 10.0 (4.5-10.0) K/mm3 Hgb 12.0 (12.0-15.0) g/dL Hct 36.0 L (37.0-47.0) % Plt Count 227 (150-375) k/mm3 [facility] 02/12/24 00:52 Glucose 92 Assessment and Plan Assessment and plan (1) Encounter for induction of labor: Code(s): Z34.90 - Encounter for supervision of normal , unspecified, unspecified trimester Status: Acute (2) Gestational diabetes: Code(s): O24.419 - Gestational diabetes mellitus in , unspecified control Status: Acute (3) GBS (group B Streptococcus carrier), +RV culture, currently : Code(s): O99.820 - Streptococcus B carrier state complicating Status: Acute (4) Rubella non-immune status, delivered, current hospitalization: Code(s): O99.892 - Other specified diseases and conditions complicating childbirth; Z28.39 - Other underimmunization status Status: Acute Plan 1. 28 y.o at 39 weeks 3 days 2. IOL for GDMA1 -blood sugars stable 3. GBS+ -received one dose of Ampicillin and c/o pruritus, Abx changed to vancomycin
[2024-02-12 18:11] LABS: Glucose Point of Care 85 mg/dl (65-105)
[2024-02-12 19:01] LABS: Glucose Point of Care 67 mg/dl (65-105)
[2024-02-12] MEDS: ONDANSETRON INJ 4 MG/2 ML VIAL IV PUSH (19:22)
--- NOTE | 2024-02-12 20:22 | PM.OBPNLAB ---
Pain Control Date/time seen: 02/12/24 20:15 Pain control: tolerating well Assessment and Plan Comments: Pushing with contractions. head visible with some pushes. Anticipate vaginal .
--- NOTE | 2024-02-12 20:24 | PM.OBPRVD ---
OB - Vaginal Delivery Note Procedure Delivery date: 02/12/24 Events: Gestational Diabetes (GCMA1) and Positive Group B Strep (GBS) Induction method: AROM and Per Pitocin Protocol Delivery monitor: External FHT and External Uterine Route of delivery: Episiotomy description: None Laceration Description: Vaginal Delivery repair: vicryl Specimen: No Quantitative Blood Loss (ml): 275 Anesthesia type: Epidural Disposition: Floor Complications: No immediate complications Narrative: Yuliet arrived for IOL d/t GDMA1. She received an epidural for analgesia and progressed to complete dilation. she pushed well with contractions and brought the head to complete crown. She delivered over an intact perineum and there was fair restitution observed. There is slow but steady delivery of anterior shoulder followed more quickly by the posterior shoulder and the remainder of the . The was placed on the maternal abdomen and dried and stimulated by the nursery staff. After 1 minute of life, the cord was doubly clamped and cut. Cord gases, cord blood, and cord segment were obtained. The placenta delivered spontaneously in the Schultze presentation. A second-degree vaginal laceration was repaired in usual fashion followed by first-degree left labial laceration. There was excellent hemostasis and uterine tone. Mother baby skin is skin in the delivery room. Tanmay counts correct. Baby Date of : 02/12/24 Time of : 20:52 Gestational Age by Date: 39 Infant gender: Female Weight (pounds): 0 (unavailable at time of note) presentation: vertex position: Right Occiput Anterior Placenta delivery description: Spontaneous and Normal Configuration Cord Vessel Description: 3 Vessels and Delayed Cord Clamping score one minute: 8 score five minutes: 9
--- NOTE | 2024-02-12 20:26 | P.DS_ITS ---
DS: Admitting Diagnosis Admitting Diagnosis 28 y.o. at 39 weeks. IOL 2/2 GDMA1. GBS+ DS: Discharge Diagnosis Discharge Diagnosis (1) (normal spontaneous vaginal delivery): Code(s): O80 - Encounter for full-term uncomplicated delivery Status: Acute (2) Rubella non-immune status, delivered, current hospitalization: Code(s): O99.892 - Other specified diseases and conditions complicating childbirth; Z28.39 - Other underimmunization status Status: Acute (3) Gestational diabetes: Code(s): O24.419 - Gestational diabetes mellitus in , unspecified control Status: Acute OB - DS: Summary OB Procedures : Ultrasound OB Procedures Intrapartum: GBS prophylaxis Status at Discharge Functional status at discharge: independent ambulation Overall status at discharge: patient is progressing back to baseline Time Spent with Patient Time attestation: Total time spent providing and/or coordinating discharge services: DS: Data Data Completed and Pending Labs on day of discharge: Labs from last 24 hours 02/12/24 02/12/24 02/12/24 18:59 18:06 15:59 WBC RBC Hgb Hct MCV MCH MCHC RDW Plt Count MPV Immature Gran % (Auto) Neut % (Auto) Lymph % (Auto) Mcdonough % (Auto) Eos % (Auto) Baso % (Auto) Lymph # (Auto) Mcdonough # (Auto) Eos # (Auto) Baso # (Auto) Abs Immat Gran (auto) Absolute Neuts (auto) Absolute Nucleated RBC Nucleated RBC % Glucose POC Capillary Glucose 67 85 72 RPR HIV 1&2 Ab/P24 Ag 4thGn Blood Type Antibody Screen 02/12/24 02/12/24 02/12/24 14:03 11:56 09:00 WBC RBC Hgb Hct MCV MCH MCHC RDW Plt Count MPV Immature Gran % (Auto) Neut % (Auto) Lymph % (Auto) Mcdonough % (Auto) Eos % (Auto) Baso % (Auto) Lymph # (Auto) Mcdonough # (Auto) Eos # (Auto) Baso # (Auto) Abs Immat Gran (auto) Absolute Neuts (auto) Absolute Nucleated RBC Nucleated RBC % Glucose POC Capillary Glucose 87 83 98 RPR HIV 1&2 Ab/P24 Ag 4thGn Blood Type Antibody Screen 02/12/24 02/12/24 04:32 00:52 WBC 10.0 RBC 4.44 Hgb 12.0 Hct 36.0 L MCV 81.1 MCH 27.0 MCHC 33.3 RDW 13.6 Plt Count 227 MPV 11.3 H Immature Gran % (Auto) 0.7 H Neut % (Auto) 65.3 Lymph % (Auto) 27.0 Mcdonough % (Auto) 5.8 Eos % (Auto) 0.9 Baso % (Auto) 0.3 Lymph # (Auto) 2.69 Mcdonough # (Auto) 0.6 Eos # (Auto) 0.1 Baso # (Auto) 0.0 Abs Immat Gran (auto) 0.07 H Absolute Neuts (auto) 6.5 Absolute Nucleated RBC 0.000 Nucleated RBC % 0.0 Glucose 92 POC Capillary Glucose 85 RPR Non-reactive HIV 1&2 Ab/P24 Ag 4thGn Negative Blood Type A Positive Antibody Screen Negative Discharge Plan Discharge Attending physician on discharge: Ailin Castle Consulting providers: Twila Mccarty Patient Disposition: Home, Self-Care Activity: may shower and pelvic rest Diet: as tolerated and regular Discharge Instructions: Continue taking your vitamin and any other supplements as previously directed (Examples: Iron, Vitamin D). You may take Tylenol 1000mg over the counter every 6 hours as needed for pain. Do not exceed 4000mg of Tylenol daily. You may continue using tucks pads and dermoplast spray if needed for a few more days. Depression * Notify provider for signs or symptoms. These may include- * Feelings: Feeling anxious, angry, hopeless, guilt, or loss of interest/pleasure in activities you normally enjoy. Mood swings or panic attacks. * General: Extreme fatigue, loss of your appetite, feeling restless. Crying excessively, irritability, insomnia * Psychological: Lack of concentration, depression or fear, unwanted thoughts * Weight: Significant gain or loss * Safety: Thoughts of harming yourself or your baby. Patient Instructions: Antibiotic Form Patient Language: Pashto Stand Alone Forms: General Discharge Information Follow-up/Referrals: Twila Mccarty, CNM [Primary Care Provider] - (6 weeks ) Discharge Medications: New ibuprofen 600 mg tablet 600 mg PO Q6H PRN (Reason: pain) Qty: 30 0RF Continued Vitamin D2 25,000 unit Capsule See Rx Instructions .ROUTE .COMPLEX Rx Instructions: 50,000 unit orally ;every 2 weeks Classic 28 mg iron- 800 mcg Tablet 1 tablet PO DAILY Discontinued famotidine [Pepcid] 20 mg Tablet 20 mg PO DAILY aspirin 81 mg Tablet 81 mg PO DAILY Date of admission: 02/12/24 00:00 Primary Care Provider: Twila Mccarty Admitting Provider: Ailin Castle Attending physician on admission: Ailin Castle Condition: Stable
[2024-02-12] MEDS: OXYTOCIN 30 UNITS/NS 500 ML 30 UNITS/500 ML BAG 125 UNITS IV CONT (21:15)
[2024-02-13] MEDS: IBUPROFEN 600 MG TABLET PO ×4 (03:25→21:40)
[2024-02-13] MEDS: ACETAMINOPHEN 325 MG TABLET 650 MG PO ×4 (03:25→21:40)
[2024-02-13 05:37] VITALS: BP 126/76; PULSE 94; RESP 16; TEMP 36.9; O2SAT 99
[2024-02-13 07:50] VITALS: BP 130/65; PULSE 100; RESP 18; TEMP 36.5; O2SAT 96
--- NOTE | 2024-02-13 09:18 | P.PNOB_ITS ---
OB - PN: Subj Subjective Date/time seen: 02/13/24 09:18 Narrative: Pain OK. OB - PN: Obj Data Labs 02/12/24 00:52 02/12/24 00:52 Labs: Laboratory Results - last 24 hr 02/12/24 02/12/24 02/12/24 11:56 14:03 15:59 POC Capillary Glucose 83 87 72 02/12/24 02/12/24 18:06 18:59 POC Capillary Glucose 85 67 OB - PN A/P Plan Comments: A: PPD#1, doing well. P: Routine care. Plan home tomorrow. Exam 2 Psych: Other: AVSS ABD soft, nontender, fundus firm EXT nontender
[2024-02-13] MEDS: MULTIVIT/MIN/PREN/FOL AC/IRON TABLET 1 TAB PO (10:04)
[2024-02-13 11:51] VITALS: BP 135/77; PULSE 93; RESP 18; TEMP 36.6; O2SAT 100
[2024-02-13] MEDS: WITCH HAZEL 40 PADS 1 PAD TOPICAL (15:59)
[2024-02-13] MEDS: BENZOCAINE 20% AER SPR (*SP) 56 GM CAN 1 SPRAY TOPICAL (15:59)
[2024-02-13 20:30] VITALS: BP 112/64; PULSE 76; RESP 18; TEMP 36.9; O2SAT 99
[2024-02-14] MEDS: IBUPROFEN 600 MG TABLET PO (06:04)
[2024-02-14] MEDS: ACETAMINOPHEN 325 MG TABLET 650 MG PO (06:04)
[2024-02-14 06:05] LABS: Hematocrit 30.9 % (37.0-47.0); Hemoglobin 10.1 g/dL (12.0-15.0)
[2024-02-14 07:30] VITALS: BP 118/64; PULSE 89; RESP 16; TEMP 36.7; O2SAT 98
--- NOTE | 2024-02-14 08:18 | P.PNOB_ITS ---
OB - PN: Subj Subjective Date/time seen: 02/14/24 08:18 Narrative: Pain OK. Would like to go home. OB - PN: Obj Data Labs 02/14/24 05:58 02/12/24 00:52 Labs: Laboratory Results - last 24 hr 02/14/24 05:58 Hgb 10.1 L Hct 30.9 L OB - PN A/P Plan day: 2 Comments: A: PPD#2, doing well. P: Home to f/u 6 weeks. Exam 2 Psych: Other: AVSS ABD soft, nontender, fundus firm EXT nontender
[2024-02-14] MEDS: DOCUSATE SODIUM 100 MG CAPSULE PO (09:43)
[2024-02-14] MEDS: MULTIVIT/MIN/PREN/FOL AC/IRON TABLET 1 TAB PO (09:43)
[2024-02-14] MEDS: MEASLES,MUMPS,RUBELLA VACCINE 0.5 ML VIAL SUB-Q (11:40)
--- NOTE | 2024-02-14 13:56 | PC.NURSE ---
1000-Patient viewed the discharge video Mother & Baby Care, The First Two Weeks . Patient was given the opportunity and encouraged to ask questions. Patient verbalized understanding of information shared and has been given the mother/baby guide for home reference.
[2024-02-15 12:34] VITALS: BP 122/69; PULSE 86; RESP 16; TEMP 36.6; O2SAT 99
--- OUTSIDE RECORDS SUMMARY | 2024-02-19 00:16 | XMS_ITS | Continuity of Care Document ---
Author Organization [facility] Address [address] [facility] [address] [facility] [address] [place] [address] Phone Care Team Providers Care Despatch Clerk Name Role Phone Devin PT,DPT, Candy Unavailable Unavail able Procedures Procedure Date PT RE-EVALUATION THERAPEUTIC EXERCISES THERAPEUTIC EXERCISES THERAPEUTIC EXERCISES THERAPEUTIC EXERCISES THERAPEUTIC EXERCISES THERAPEUTIC EXERCISES THERAPEUTIC EXERCISES THERAPEUTIC EXERCISES FUNC ACTIVITY 15 MIN THERAPEUTIC EXERCISES THERAPEUTIC EXERCISES THERAPEUTIC EXERCISES PT EVALUATION THERAPEUTIC EXERCISES Advance Directives Directive Yes / No Effective Date File Name No Information Encounters Encounter Description Practice Location Reason(s) For Visit Diagnoses Date Provider Providers Copied on Encounter [facility], [address], [id number], tel:[phone] [place] No Information Devin Gupta. [address] [place], [place], [facility], . tel:[phone] [facility], [address] [facility], [id number], tel:[phone] [place] No Information Praveena Groves. [address] [place], [address], . tel:[phone] [facility], [address], [place], [place], [id number], tel:[phone] [place] No Information Devin Gupta. [address] [facility], [place], [place], [facility], . tel:[phone] [facility], [facility] [address], [place], [place], [id number], tel:[phone] [place] No Information Devin Gupta. [address] [facility], [place], [place], [facility], . tel:[phone] [facility], [facility] [address], [place], [place], [id number], tel:[phone] [place] No Information Devin Gupta. [address] [facility], [place], [facility], . tel:[phone] [facility], [facility] [address], [place], [id number], tel:[phone] [place] No Information Devin Gupta. [address] [place], [address], . tel:[phone] [facility], [address] [facility] [address], [place], [place], [id number], tel:[phone] [place] No Information Devin Gupta. [address] [place], [place], [facility], . tel:[phone] [facility], [facility] [address], [place], [place], [id number], [place] tel:[phone] [place] No Information Devin Gupta. [address] [facility], [place], [place], [facility], . tel:[phone] [facility], [address], [place], [place], [id number], tel:[phone] [place] No Information Devin Gupta. [address] [place], [address], . tel:[phone] [facility], [address] [place] [address], [id number], tel:[phone] [place] No Information Devin Gupta. [address] [place], [facility], . tel:[phone], [id number], tel:[phone] [place] No Information Devin Gupta. [address] [place], [place], [facility], . tel:[phone] [facility] [address] [place] [address], [id number], tel:[phone] [place] Pain in joint involving lower leg Devin Gupta. [address] [place], [place], [facility], . tel:[phone] Family History Family Member Type Diagnosis Age At Onset No Information Payers Payer name Insurance type Covered green party ID Zachariah vallejo(s) [facility] [id number] Visit Limit Social History Type Description Quantity Date Captured Comments Sex Female Smoking Status No Information Chief Complaint And Reason For Visit No Information Reason For Referral Reason For Referral No Information History Of Present Illness Encounter Date Complaint History Of Prese nt Illness No Information Functional Status Date Functional Assessmen t No Information Instructions Date Instruction Additional Infor mation No Information Assessments Type Assessment Date No Information Patient Care Teams Name Effective Dates (start - stop) Status Members No Information
== END 2024-02-14 13:10 | disposition home or self-care (01) | DRG 807 ==
LOC: ANHLDR 21:39 → ANHOB2 23:34
PROVIDERS: Admitting Provider Obstetrics & Gynecology Gynecology; PCP Advanced Practice Midwife; Visit Provider Obstetrics & Gynecology Gynecology
DX: O24.429 Gestational diabetes mellitus in childbirth, unspecified control (principal); Z37.0 Single live birth; Z3A.39 39 weeks gestation of pregnancy; O99.824 Streptococcus B carrier state complicating childbirth; O36.8330 Maternal care for abnormalities of the fetal heart rate or rhythm, third trimester, not applicable or unspecified; O70.1 Second degree perineal laceration during delivery
CPT/HCPCS: 36415; 82947; 82948; 85014; 85018; 85025; 86592; 86703; 86850; 86900; 86901; 90710; A9270; G0432; J0290; J1200; J2405; J2590; J2795; J3370; J7120

== ENCOUNTER 2024-02-16 12:00 | Outpatient (RCR) | payer BC, SELFPAY ==
--- NOTE | 2024-02-16 13:07 | PC.NURSE ---
In- 1205 Out- 1250 Reason for visit: Maternal concerns of low milk production and persistent shallow latch. History: Yuliet had a vaginal delivery on 02/12/24. She was induced with pitocin and had an uncomplicated delivery and recovery. Her history is significant for a diagnosis of PCOS and GDM. She did have difficulty getting and took clomid. We discussed the risks this can pose for milk production and that she may need to continue to supplement baby after each . She is 4 days today and only started pumping yesterday. Low milk production could be related to the delay in breast stimulation and/or the history of PCOS. Infant History: Lorraine was born at 39 weeks gestation. She had some initial low blood sugars and was required to supplement with formula. While in the hospital she continued to supplement after each due to the low glucose. At home, baby would attempt to latch but would be very shallow and mom said she wouldn't really suck. Mom started pumping yesterday and is getting drops to a few mls each session. Observations: Mother latched baby to both breasts in cross cradle hold. On the first breast we had to facilitate the latch with compression of breast tissue close to the nipple. Baby tends to keep her tongue elevated when latching and is a tongue sucker. Mom says that she struggles to get baby to open wide at most feedings. On the second breast, mom was able to latch independently and we observed that the bottom lip was rolled in. Mom was shown how to flange the lower lip out. Baby cupped the breast well with her tongue and maintained the latch without difficulty. There was frequent swallowing and baby transferred about 10ml total at breast. weight: 7-1 Lowest weight: 6-13 Last weight: 6-15 (at Peds office) Pre-feed weight: 3284 Post-feed weight: 3293 Plan of Care: Encouraged mother to continue to offer the breast at every feeding if it is her desire to feed directly at the breast. Due to her medical history, she is advised to continue with pumping and supplementing after every feeding. Within the next 2 days, mom should begin to see an increase in the amount of milk that she pumps during each session. Depending on how well her production increases, she may need to continue with the supplementation after each indefinitely. Advised mom to pay close attention to satisfaction and to allow her to supplement ad jessika after . Follow up plans: Patient will call for any further concerns or questions. We can make another appointment to evaluate feeding again if needed. Mom agrees to let us know if she has any further needs. Patient will also continue to follow with her senior solutions consultant as scheduled.
== END 2024-05-16 23:59 | disposition home or self-care (01) ==
LOC: ANHOBOP 12:00
PROVIDERS: PCP Advanced Practice Midwife; Visit Provider Pediatrics
DX: Z39.1 Encounter for care and examination of lactating mother (principal)
CPT/HCPCS: 99202; G0463

== ENCOUNTER 2024-11-08 16:04 | Outpatient (CLI) | payer BC, SELFPAY ==
[2024-11-08 17:06] LABS: Hemoglobin A1C 5.4 % (<5.7)
[2024-11-08 17:07] LABS: Cholesterol 216 mg/dL (0-200); HDL Direct 45 mg/dL; Triglycerides 207 mg/dL (<150)
[2024-11-08 17:57] LABS: Vitamin B12 692.0 pg/mL (239-931)
== END 2024-11-08 16:05 | disposition home or self-care (01) ==
PROVIDERS: PCP Obstetrics & Gynecology Gynecology; Visit Provider Obstetrics & Gynecology Gynecology
DX: E28.2 Polycystic ovarian syndrome (principal); N97.9 Female infertility, unspecified
CPT/HCPCS: 36415; 80061; 82607; 83036; 83525; 84144

== ENCOUNTER 2025-01-11 08:26 | Outpatient (CLI) | payer BC, SELFPAY | END 2025-01-11 08:27 | disposition home or self-care (01) | LOC: CHSLAB 08:28 | PROVIDERS: PCP Obstetrics & Gynecology Gynecology; Visit Provider Obstetrics & Gynecology Gynecology | DX: N97.0 Female infertility associated with anovulation (principal); E28.2 Polycystic ovarian syndrome | CPT/HCPCS: 83525; 84144 ==